=== PATIENT | female | born 1975 | race Two or more races ===

== ENCOUNTER 2021-03-19 13:40 | Outpatient (CLI) | payer OTHER | END 2021-03-19 13:57 | disposition home or self-care (01) | LOC: RAD 13:40 | PROVIDERS: ATTEND Orthopaedic Surgery | DX: M25.572 Pain in left ankle and joints of left foot (principal) ==

== ENCOUNTER 2021-03-27 10:52 | Outpatient (CLI) | payer OTHER | END 2021-03-27 11:16 | disposition home or self-care (01) | LOC: RAD 10:52 | PROVIDERS: ATTEND Orthopaedic Surgery | DX: S82.65XA Nondisplaced fracture of lateral malleolus of left fibula, initial encounter for closed fracture (principal) ==

== ENCOUNTER 2021-04-02 13:16 | Outpatient (CLI) | payer OTHER | END 2021-04-02 13:18 | disposition home or self-care (01) | LOC: RAD 13:16 | PROVIDERS: ATTEND Orthopaedic Surgery | DX: S82.65XA Nondisplaced fracture of lateral malleolus of left fibula, initial encounter for closed fracture (principal) ==

== ENCOUNTER 2021-07-24 10:35 | Outpatient (CLI) | payer OTHER | END 2021-07-24 10:43 | disposition home or self-care (01) | LOC: RAD 10:35 | PROVIDERS: ATTEND Orthopaedic Surgery | DX: M25.572 Pain in left ankle and joints of left foot (principal) ==

== ENCOUNTER 2021-11-07 08:11 | Outpatient (CLI) | payer OTHER | END 2021-11-07 08:14 | disposition home or self-care (01) | LOC: RAD 08:11 | PROVIDERS: ATTEND Orthopaedic Surgery | DX: S82.65XG Nondisplaced fracture of lateral malleolus of left fibula, subsequent encounter for closed fracture with delayed healing (principal) ==

== ENCOUNTER → 2021-11-07 | Outpatient (CLI) | payer OTHER | END | disposition home or self-care (01) | LOC: LAB 08:54 | PROVIDERS: ATTEND Orthopaedic Surgery | DX: E56.1 Deficiency of vitamin K (principal); E55.9 Vitamin D deficiency, unspecified; M85.9 Disorder of bone density and structure, unspecified ==